=== PATIENT | female | born 1975 | race Caucasian/White ===

== ENCOUNTER → 2019-08-18 | Outpatient (CLI) | payer BC ==
--- NOTE | 2019-08-18 15:07 | Diagnostic Imaging Report ---
INDICATION: Routine screening. No prior mammograms are available for comparison. This a baseline study. 2-D and 3-D bilateral screening mammography was performed with CAD. Both breasts are heterogeneously dense, limiting the sensitivity of mammography. There is a cluster of microcalcifications in the upper and slightly outer aspect of the anterior left breast. Additional views are recommended. Right breast is unremarkable. No mass is seen. Axillae are unremarkable. IMPRESSION: BI-RADS 0 Left breast calcifications. Additional views are recommended. ACR BI-RADS Category 0: Incomplete. (Needs additional imaging evaluation). Result letter will be mailed to the patient. Note: At least 10% of breast cancer is not imaged by mammography. Dictated by: Dictated on workstation # [id number]
== END ==
LOC: RAD 12:34
PROVIDERS: ATTEND Physician Assistant
DX: Z12.31 Encounter for screening mammogram for malignant neoplasm of breast (principal); R92.1 Mammographic calcification found on diagnostic imaging of breast
CPT/HCPCS: 77067

== ENCOUNTER → 2019-09-04 | Outpatient (CLI) | payer BC ==
--- NOTE | 2019-09-04 15:21 | Diagnostic Imaging Report ---
INDICATION: Left breast calcifications. Patient presents for additional views. COMPARISON: Correlation is made with screening mammogram from 08/18/2019. EXAMINATION: Unilateral left 2D and 3D diagnostic mammography was performed including magnification CC, ML as well as conventional 90 degree lateral views. FINDINGS: The cluster of microcalcifications in the upper and outer aspect of the left breast is again noted. Majority of the calcifications appear to be round or punctate but these are fairly tightly clustered. No associated soft tissue mass is seen. No suspicious pleomorphism is identified. Benign appearing calcifications just posterior and slightly more medial are noted as well which may be milk of calcium. IMPRESSION: Cluster of indeterminate microcalcifications in the upper and outer aspect of the left breast. Tissue sampling is recommended. These would be amenable to stereotactic approach. ACR BI-RADS Category 4: Suspicious abnormality. Result letter will be mailed to the patient. Note: At least 10% of breast cancer is not imaged by mammography. Dictated by: Dictated on workstation # [id number]
== END ==
LOC: RAD 13:48
PROVIDERS: ATTEND Physician Assistant
DX: R92.0 Mammographic microcalcification found on diagnostic imaging of breast (principal)

== ENCOUNTER 2019-09-16 05:38 | Outpatient (CLI) | payer BC ==
[~2019-09-16] VITALS: Ht 162 cm; Wt 75.0 kg
[2019-09-16] MEDS ORDERED: VITA1CAP PO (11:54)
[2019-09-16] MEDS ORDERED: MULT-1136 PO (11:54)
== END 2019-09-16 12:00 | disposition home or self-care (01) ==
LOC: PREOP 05:38
PROVIDERS: ATTEND Surgery
DX: Z01.818 Encounter for other preprocedural examination (principal)

== ENCOUNTER → 2019-10-05 | Outpatient (CLI) | payer BC ==
[~2019-10-05] VITALS: Ht 162.6 cm; Wt 72.7 kg
[~2019-10-05] MED LIST: LIDOCAINE 1% INJ 20 ML 20 ML VIAL INJ ONE; LIDOCAINE 1% INJ 20 ML 20 ML VIAL ONE; MULT-1136 PO; VITA1CAP PO
--- NOTE | 2019-10-05 15:19 | Diagnostic Imaging Report ---
INDICATION: Left breast calcifications. Patient presents for stereotactic biopsy. COMPARISON: Correlation is made with the prior mammograms from 08/18/2019 and 09/04/2019. TECHNIQUE: The patient was brought to the stereotactic suite and placed in the chair in the sitting upright position. The left breast was positioned in a lateral medial fashion. Stereotactic imaging was performed to evaluate for an appropriate entry site. The clustered microcalcifications in the upper and outer aspect of the left breast were stereotactically targeted. The left breast was then prepped and draped in the usual sterile fashion. A small amount of 1% lidocaine was utilized for local anesthesia. An 8 gauge stereotactic needle was advanced into the left breast from a lateral medial approach and placed per stereotactic coordinates. A total of four core biopsies was obtained with the vacuum-assisted device. The specimen radiograph does show numerous calcifications in a cluster within samples 1 and 4. All images were viewed on a dedicated workstation. The localizer clip was then deployed. The needle was removed and hemostasis was obtained using manual compression. The patient tolerated the procedure well and obtained a post procedure 2D CC and LM mammogram. The mammographic images demonstrated the clip in the upper slightly outer left breast. IMPRESSION: Successful stereotactic biopsy of the clustered microcalcifications in the upper outer left breast utilizing a dedicated vacuum-assisted device. Pathology results are currently pending. Dictated by: Dictated on workstation # [id number]
== END ==
LOC: RAD 12:32
PROVIDERS: ATTEND Physician Assistant
DX: N60.22 Fibroadenosis of left breast (principal); N60.21 Fibroadenosis of right breast; N60.02 Solitary cyst of left breast; N60.01 Solitary cyst of right breast
CPT/HCPCS: 19081; 88305

== ENCOUNTER 2021-02-06 07:04 | Outpatient (CLI) | payer BC ==
[~2021-02-06] VITALS: Ht 165.1 cm; Wt 77.3 kg
[~2021-02-06 07:04] MED LIST changes: -LIDOCAINE 1% INJ 20 ML 20 ML VIAL INJ ONE; -LIDOCAINE 1% INJ 20 ML 20 ML VIAL ONE
== END 2021-02-07 12:29 ==
LOC: PREOP 07:04
PROVIDERS: ATTEND Specialist
DX: Z01.818 Encounter for other preprocedural examination (principal)

== ENCOUNTER 2021-02-10 12:27 | Day surgery (SDC) | payer BC ==
[~2021-02-10] VITALS: Ht 165.1 cm; Wt 77.3 kg
[2021-02-10] MEDS ORDERED: MIDAZOLAM 2 MG/2 ML (VERSED) VIAL ONE (12:34)
[2021-02-10] MEDS: TETRACAINE 0.5% OPHTH SOLN 4 ML BTL (SINGLE DOSE ONLY) OU PRN ×4 (12:57→13:14)
[2021-02-10] MEDS ORDERED: POVIDONE (BETADINE) OPHTH SOLN 5% 30 ML OP ONE (13:00)
[2021-02-10] MEDS ORDERED: MOXIFLOXACIN OPHTH SOLN 5 MG/ML 0.3 ML SYRINGE OP ONE (13:00)
[2021-02-10] MEDS ORDERED: TIMOLOL MALEATE 0.5% 5 ML (TIMOPTIC) BTL OU PRN (13:00)
[2021-02-10] MEDS ORDERED: LIDOCAINE PF 1% 2 ML VIAL IR PRN (13:00)
[2021-02-10] MEDS: TROPICAMIDE 1% OPH SOLN (MYDRIACYL) 15 ML BTL OP SCH ×3 (13:03→13:14)
[2021-02-10] MEDS: PHENYLEPHRINE 10% OPHTH (NEO-SYN) 5 ML BTL OU SCH ×3 (13:03→13:14)
[2021-02-10 13:07] VITALS: BP 116/61
--- NOTE | 2021-02-10 13:45 | Ophthalmologist Pre-Op Note ---
Pre-Operative Progress Note H&P Reviewed The H&P was reviewed, patient examined and no changes noted. Date H&P Reviewed: Feb 10, 2021 Time H&P Reviewed: 13:15 Pre-Op Dx Cataract, Right Eye CHRIS PARRA MD Feb 10, 2021 13:45
--- NOTE | 2021-02-10 13:46 | Ophthalmology Operative Report ---
Cataract removal/placement IOL PREOPERATIVE DIAGNOSIS: Cataract Right Eye POSTOPERATIVE DIAGNOSIS: Cataract Right Eye PROCEDURE: Cataract removal and placement of posterior chamber implant, right eye SURGEON: Isai Parra ANESTHESIA: Topical with sedation COMPLICATIONS: None ESTIMATED BLOOD LOSS: Minimal DESCRIPTION OF PROCEDURE: After proper informed consent was obtained, the patient, a 45 female, was taken to the Operating Room and the right eye was anesthetized with tetracaine. The right eye was then prepped and draped in the usual manner. A wire lid speculum was placed. A paracentesis was made at the left hand position. Preservative free lidocaine was injected into the anterior chamber followed by viscoelastic. A clear corneal incision was made in the temporal position. A capsulorrhexis was preformed and the central nuclear and cortical material were removed. The posterior capsule was polished and Dale 16.0 SN6AT9 IOL was placed into the capsular bag. The residual viscoelastic was aspirated and balanced saline solution was injected into the anterior chamber. Moxifloxacin was injected into the anterior chamber. The wound was checked and found to be water tight. The patient tolerated the procedure well without complications. ISAI PARRA MD Feb 10, 2021 13:46
[2021-02-10 13:50] VITALS: BP 117/65
--- NOTE | 2021-02-10 13:57 | Anesthesia-General Post-Op ---
MAC Patient Condition Mental Status/LOC: Same as Preop Cardiovascular: Satisfactory Nausea/Vomiting: Absent Respiratory: Satisfactory Pain: Controlled Complications: Absent Post Op Complications Complications None Follow Up Care/Instructions Patient Instructions None needed. Anesthesiology Discharge Order Discharge Order Patient was seen after the procedure and she was doing well, no complaints, stable vital signs, no apparent adverse anesthesia problems. PEREZ SCHAFFER DO Feb 10, 2021 13:57
[2021-02-10] MEDS ORDERED: acetaZOLAMIDE ER 500 MG CAP (DIAMOX SEQUELS) PO ONE (14:00)
== END 2021-02-10 13:51 ==
LOC: SDC 12:27
PROVIDERS: ATTEND Specialist
DX: H25.11 Age-related nuclear cataract, right eye (principal); Z87.891 Personal history of nicotine dependence
CPT/HCPCS: 66984; 84703; V2632

== ENCOUNTER 2021-02-24 11:10 | Day surgery (SDC) | payer BC ==
[~2021-02-24] VITALS: Ht 165.1 cm; Wt 77.3 kg
[2021-02-24] MEDS: TETRACAINE 0.5% OPHTH SOLN 4 ML BTL (SINGLE DOSE ONLY) OU PRN ×4 (11:24→11:44)
[2021-02-24] MEDS ORDERED: POVIDONE (BETADINE) OPHTH SOLN 5% 30 ML OP ONE (11:30)
[2021-02-24] MEDS ORDERED: LIDOCAINE PF 1% 2 ML VIAL IR PRN (11:30)
[2021-02-24] MEDS ORDERED: MOXIFLOXACIN OPHTH SOLN 5 MG/ML 0.3 ML SYRINGE OP ONE (11:30)
[2021-02-24] MEDS ORDERED: TIMOLOL MALEATE 0.5% 5 ML (TIMOPTIC) BTL OU PRN (11:30)
[2021-02-24] MEDS: TROPICAMIDE 1% OPH SOLN (MYDRIACYL) 15 ML BTL OP SCH ×3 (11:33→11:44)
[2021-02-24] MEDS: PHENYLEPHRINE 10% OPHTH (NEO-SYN) 5 ML BTL OU SCH ×3 (11:33→11:44)
[2021-02-24 11:35] VITALS: BP 106/58
--- NOTE | 2021-02-24 12:10 | Ophthalmologist Pre-Op Note ---
Pre-Operative Progress Note H&P Reviewed The H&P was reviewed, patient examined and no changes noted. Date H&P Reviewed: Feb 24, 2021 Time H&P Reviewed: 12:10 Pre-Op Dx Cataract, Left Eye CHRIS PARRA MD Feb 24, 2021 12:10
[2021-02-24] MEDS ORDERED: MIDAZOLAM 2 MG/2 ML (VERSED) VIAL ONE (12:15)
--- NOTE | 2021-02-24 12:39 | Ophthalmology Operative Report ---
Cataract removal/placement IOL PREOPERATIVE DIAGNOSIS: Cataract Left Eye POSTOPERATIVE DIAGNOSIS: Cataract Left Eye PROCEDURE: Cataract removal and placement of posterior chamber implant, left eye SURGEON: Isai Parra ANESTHESIA: Topical with sedation COMPLICATIONS: None ESTIMATED BLOOD LOSS: Minimal DESCRIPTION OF PROCEDURE: After proper informed consent was obtained, the patient, a 45 female, was taken to the Operating Room and the left eye was anesthetized with tetracaine. The left eye was then prepped and draped in the usual manner. A wire lid speculum was placed. A paracentesis was made at the left hand position. Preservative free lidocaine was injected into the anterior chamber followed by viscoelastic. A clear corneal incision was made in the temporal position. A capsulorrhexis was preformed and the central nuclear and cortical material were removed. The posterior capsule was polished and an Dale 16.0 SN6AT9 was placed into the capsular bag. The residual viscoelastic was aspirated and balanced saline solution was injected into the anterior chamber. Moxifloxacin was injected into the anterior chamber. The wound was checked and found to be water tight. The patient tolerated the procedure well without complications. ISAI PARRA MD Feb 24, 2021 12:39
[2021-02-24 12:42] VITALS: BP 97/65
[2021-02-24] MEDS ORDERED: acetaZOLAMIDE ER 500 MG CAP (DIAMOX SEQUELS) PO ONE (13:00)
--- NOTE | 2021-02-24 14:10 | Anesthesia-General Post-Op ---
MAC Patient Condition Mental Status/LOC: Same as Preop Cardiovascular: Satisfactory Nausea/Vomiting: Absent Respiratory: Satisfactory Pain: Controlled Complications: Absent Post Op Complications Complications None Follow Up Care/Instructions Patient Instructions None needed. Anesthesiology Discharge Order Discharge Order Patient was seen after the procedure and she was doing well, no complaints, stable vital signs, no apparent adverse anesthesia problems. PEREZ SCHAFFER DO Feb 24, 2021 14:10
== END 2021-02-24 12:43 ==
LOC: SDC 11:10
PROVIDERS: ATTEND Specialist
DX: H25.12 Age-related nuclear cataract, left eye (principal); Z87.891 Personal history of nicotine dependence
CPT/HCPCS: 84703